=== PATIENT | male | born 1980 | race Caucasian/White ===

== ENCOUNTER 2017-09-29 13:26 | Emergency (ER) | payer MEDICAID ==
[~2017-09-29] VITALS: Ht 190.5 cm; Wt 109.0 kg
[2017-09-29] MEDS ORDERED: DIAZEPAM 5 MG TABLET PO ONE (14:45)
[2017-09-29] MEDS ORDERED: KETOROLAC TROMETHAMINE 10 MG TABLET PO ONE (14:45)
[2017-09-29 14:54] VITALS: BP 120/70
== END 2017-09-29 15:13 | disposition home or self-care (01) ==
LOC: EMS 13:27
DX: S39.012A Strain of muscle, fascia and tendon of lower back, initial encounter (principal); F17.210 Nicotine dependence, cigarettes, uncomplicated; Z88.2 Allergy status to sulfonamides; X58.XXXA Exposure to other specified factors, initial encounter; Y93.89 Activity, other specified; Y92.69 Other specified industrial and construction area as the place of occurrence of the external cause; Y99.8 Other external cause status
CPT/HCPCS: 99283